=== PATIENT | female | born 1980 | race Caucasian/White ===

== ENCOUNTER 2017-04-10 13:29 | Emergency (ER) | payer MEDICAID ==
[~2017-04-10 13:29] MED LIST: AUGM875T PO
[2017-04-10 13:58] VITALS: BP 124/61; PULSE 96; RESP 18; TEMP 97.9; O2SAT 98
--- NOTE | 2017-04-10 14:52 | PD ---
HPI Chief Complaint: Musculoskeletal Complaint Time Seen by Provider: 14:20 Travel History International Travel<30 days: No Contact w/Intl Traveler<30days: No Traveled to known affect area: No History of Present Illness HPI 36-year-old female with chief complaint of right lower extremity pain and swelling 2 days. 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 She is concerned she has a blood clot in the right lower extremity. She reports she had a minor contusion to the right anterior worthy several days ago. The injury was minor and did not produce a hematoma or any evidence of trauma. She denies chest pain, shortness of breath. Patient reports the pain is localized to the right calf no aggravating or alleviating factors. Symptoms severity moderate. PFSH Past Medical History Depression: Yes Diabetes: No Diminished Hearing: No ?: Not Past Surgical History Section: Yes Gynecologic Surgery: Yes (CRYO CERVIX SURGERY) Other Surgery: Yes (LEFT ARM VASCULAR, TAILBONE CYST) Social History Alcohol Use: No Tobacco Use: Yes (ONE PPD) Substance Use: No Allergies-Medications (Allergen,Severity, Reaction): Coded Allergies: No Known Allergies (Verified , 04/10/17) Reported Meds & Prescriptions Reported Meds & Active Scripts Active Review of Systems Except as stated in HPI: all other systems reviewed are Neg General / Constitutional: No: Fever Eyes: No: Visual changes HENT: No: Headaches Cardiovascular: No: Chest Pain or Discomfort Respiratory: No: Shortness of Breath Gastrointestinal: No: Abdominal Pain Genitourinary: No: Dysuria Physical Exam Narrative GENERAL: Well-nourished, well-developed patient. SKIN: Focused skin assessment warm/dry. HEAD: Normocephalic. EYES: No scleral icterus. No injection or drainage. NECK: Supple, trachea midline. No JVD or lymphadenopathy. CARDIOVASCULAR: Regular rate and rhythm without murmurs, gallops, or rubs. RESPIRATORY: Breath sounds equal bilaterally. No accessory muscle use. GASTROINTESTINAL: Abdomen soft, non-tender, nondistended. MUSCULOSKELETAL: No cyanosis. Right lower extremity: TTP right posterior calf extending to the posterior knee. Mild nonpitting edema to the right lateral ankle. 2+ distal pulses. Normal sensation and strength. BACK: Nontender without obvious deformity. No CVA tenderness. Data Data Last Documented VS Vital Signs Date Time Temp Pulse Resp B/P Pulse Ox O2 Delivery O2 Flow Rate FiO2 04/10/17 13:58 97.9 96 18 124/61 98 Orders Us Leg Venous Doppler (04/10/17 ) MDM Medical Decision Making Medical Screen Exam Complete: Yes Emergency Medical Condition: Yes Differential Diagnosis DVT, unspecified leg pain, contusion Narrative Course 36-year-old female with chief complaint of right lower extremity pain and swelling 2 days. Ultrasound of right lower extremity negative for DVT. Diagnosis Primary Impression: Right leg pain Referrals: Primary Care Physician Additional Instructions: Follow-up with her primary care doctor for recheck. Return to emergency department if YOU developed new or worsening symptoms. Scripts No Active Prescriptions or Reported Meds Disposition: 01 DISCHARGE HOME Condition: Stable Bianca Ortega Apr 10, 2017 14:52
--- NOTE | 2017-04-10 15:46 | RADRPT ---
EXAM DATE/TIME: 04/10/2017 15:07 [facility] COMPARISON: No previous studies available for comparison. INDICATIONS : Right leg swelling. MEDICAL HISTORY : Depression. Right leg swelling. SURGICAL HISTORY : section. Cryo cervix surgery. Reconstruction of the face. Left arm vascular. Tailbone cys t removal. ENCOUNTER: Initial ACUITY: 1 day PAIN SCORE: 4/10 LOCATION: Right leg. TECHNIQUE: Venous ultrasound of the leg was performed from the inguinal ligament to the proximal calf. Real-basilio e, color Doppler and spectral tracing, compression and augmentation techniques were used. FINDINGS: There is normal compressibility of the deep venous system from the inguinal region to the proximal ca lf. No echogenic clot is seen in the lumen of the common femoral, femoral, popliteal, and posterior tibial veins. There is a normal response of the venous system to proximal and distal augmentation an d respiration. CONCLUSION: No DVT is identified in the right lower extremity. Joe Nicole MD on April 10, 2017 at 15:44 Board Certified Radiologist. This report was verified electronically.
[2017-04-10 16:12] VITALS: BP 103/64; PULSE 86; RESP 18; O2SAT 98
== END 2017-04-10 16:12 | disposition home or self-care (01) ==
LOC: PHEFT 13:29
DX: M79.604 Pain in right leg (principal); R22.41 Localized swelling, mass and lump, right lower limb; F17.200 Nicotine dependence, unspecified, uncomplicated; Z86.59 Personal history of other mental and behavioral disorders
CPT/HCPCS: 93971; 99284

== ENCOUNTER → 2017-12-29 | Outpatient (CLI) | payer BC ==
--- NOTE | 2017-12-29 19:05 | ECHRPT ---
Indication: CHEST PAIN, PALPATATIONS CONCLUSIONS The left ventricular systolic function is normal with an estimated ejection fraction in the range of 60-65%. Left ventricular diastolic function parameters are normal. There is trace tricuspid valve regurgitation. BP: / HR: Rhythm: Sinus MEASUREMENTS (Male / Female) Normal Values Technical Quality:Good 2D ECHO LV Diastolic Diameter PLAX 4.6 cm 4.2 - 5.9 / 3.9 - 5.3 cm LV Systolic Diameter PLAX 3.3 cm IVS Diastolic Thickness 0.7 cm 0.6 - 1.0 / 0.6 - 0.9 cm LVPW Diastolic Thickness 0.7 cm 0.6 - 1.0 / 0.6 - 0.9 cm LV Relative Wall Thickness 0.3 RV Internal Dim ED PLAX 2.6 cm LVOT Diameter 2.0 cm Aortic Root Diameter 2.6 cm LA Systolic Diameter LX 3.7 cm 3.0 - 4.0 / 2.7 - 3.8 cm M-MODE AV Cusp Separation MM 1.8 cm DOPPLER AV Peak Velocity 132.0 cm/s AV Peak Gradient 7.0 mmHg AV Mean Gradient 4.0 mmHg AV Velocity Time Integral 24.8 cm LVOT Peak Velocity 90.2 cm/s LVOT Peak Gradient 3.3 mmHg LVOT Velocity Time Integral 15.4 cm AV Area Cont Eq vti 2.0 cm AV Area Cont Eq pk 2.1 cm Mitral E Point Velocity 87.4 cm/s Mitral A Point Velocity 40.0 cm/s Mitral E to A Ratio 2.2 LV E' Lateral Velocity 15.9 cm/s Mitral E to LV E' Lateral Ratio 5.5 LV E' Septal Velocity 11.9 cm/s Mitral E to LV E' Septal Ratio 7.3 TR Peak Velocity 181.0 cm/s TR Peak Gradient 13.1 mmHg Right Atrial Pressure 10.0 mmHg Pulmonary Artery Systolic Pressu 23.1 mmHg Right Ventricular Systolic Press 23.1 mmHg PV Peak Velocity 82.7 cm/s PV Peak Gradient 2.7 mmHg FINDINGS LEFT VENTRICLE Normal left ventricular size. Wall thickness is normal. The left ventricular systolic function is normal with an estimated ejection fraction in the range of 60-65%. Left ventricular diastolic function parameters are normal. RIGHT VENTRICLE Normal right ventricular size and systolic function. LEFT ATRIUM The left atrial size is upper limits of normal. RIGHT ATRIUM The right atrial size is normal. ATRIAL SEPTUM No atrial level shunt is demonstrated by color flow Doppler interrogation. AORTA The aortic root and proximal ascending aorta are normal in size on limited imaging. MITRAL VALVE Structurally normal mitral valve. No mitral valve stenosis or regurgitation. AORTIC VALVE Trileaflet aortic valve. No aortic valve stenosis or regurgitation. TRICUSPID VALVE Structurally normal tricuspid valve. No tricuspid valve stenosis. There is trace tricuspid valve regurgitation. PULMONARY VALVE No pulmonary valve regurgitation or stenosis. VESSELS The inferior vena cava is normal in size. PERICARDIUM No pericardial effusion. Jacoby Bowman DO (Electronically Signed) Final Date:29 December 2017 19:05
--- NOTE | 2017-12-31 17:13 | HM ---
Date Performed: 12/29/2017 Time Performed: 10:06:00 HOOKUP DATE: 12/29/17 10:06:00 AM Tue ANALYSIS START TIME: 12/29/2017 10:11:00 AM ANALYSIS END TIME: 12/30/2017 10:14:59 AM PATIENT AGE: 37 PATIENT HEIGHT PATIENT WEIGHT DRUG LIST PATIENT DIAGNOSIS TEST NARRATIVE: The patient's average heart rate was 88 BPM. Heart rates greater than 120 B PM were noted 5% of the time. No episodes of bradycardia were noted. No pauses exceeding 2.0 sec onds were noted. No ventricular ectopics were noted. No supraventricular ectopics were noted. No episodes of ST depression (defined as -1.0 mm or more) were noted in channel 1. No episodes of ST depression (defined as -1.0 mm or more) were noted in channel 2. No episodes of ST depression (defined as -1.0 mm or more) were noted in channel 3. TEST INTERPRETATION: Patient was monitored 24hrs and 4 minutes. The patient was in normal sinus rythm. Average heart rate was 88 beats per minute. Periods of sinus bradycardia to 56 beats per minut e at 0536 am and periods of sinus tachycardia to 140 beats per minute at 215pm. There were 0 PVC's an d 0 PAC'S. Signed by : Edy hale
== END ==
LOC: HECH 08:53
PROVIDERS: ATTEND Allergy & Immunology
DX: R00.2 Palpitations (principal); R07.1 Chest pain on breathing
CPT/HCPCS: 93225; 93226; 93306